=== PATIENT | male | born 1965 ===

== ENCOUNTER 2016-05-23 00:48 | Observation (INO) | payer MEDICAID ==
[2016-05-23] MEDS ORDERED: Sodium Chloride 0.9% 1,000 ML IV STA ×2 (01:24→02:17)
[2016-05-23 01:41] LABS: BASO % 0.7 % (0.0-2.0); EOS % 0.5 % (0.0-4.0); HEMATOCRIT 40.2 % (35.0-51.0); LYMPH # 2.3 K/uL (1.0-4.3); LYMPH % 38.9 % (20.0-40.0); MEAN CELL VOLUME 84.9 fl (80.0-94.0); MEAN CORPUSCULAR HEMOGLOBIN 27.1 pg (27.0-31.0); MEAN CORPUSCULAR HGB CONC 31.9 g/dL (33.0-37.0); MEAN PLATELET VOLUME 9.1 fl (7.2-11.7); MONO # 0.3 K/uL (0.0-0.8); MONO % 5.3 % (0.0-10.0); NEUT # 3.3 K/uL (1.8-7.0); NEUT % 54.6 % (50.0-75.0); RED CELL DISTRIBUTION WIDTH 13.7 % (11.5-14.5)
[2016-05-23 01:49] LABS: ALB/GLOB RATIO 1.2 (1.0-2.1); ALKALINE PHOSPHATASE 152 U/L (38-126); ALT/SGPT 71 U/L (21-72); AST/SGOT 88 U/L (17-59); BILIRUBIN,TOTAL 0.5 mg/dl (0.2-1.3); BLOOD UREA NITROGEN 8 mg/dl (9-20); CALCIUM 9.4 mg/dL (8.4-10.2); CARBON DIOXIDE 21 mmol/L (22-30); CHLORIDE 105 mmol/L (98-107); GFR AFRICAN-AMERICAN > 60; POTASSIUM 3.9 MMOL/L (3.6-5.0); SODIUM 149 mmol/l (132-148); TOTAL PROTEIN 7.8 G/DL (6.3-8.2)
[2016-05-23 01:52] LABS: GLUCOSE,RANDOM 489 mg/dL (75-110)
--- NOTE | 2016-05-23 01:58 | ED PDOC ---
HPI: Psych/Substance Abuse Time Seen by Provider: 05/23/16 00:56 Chief Complaint (Nursing): Alcohol Ingestion Chief Complaint (Provider): Alcohol Intoxication ED Caveat: Intoxicated History Per: Patient History/Exam Limitations: intoxication Onset/Duration Of Symptoms: Hrs Current Symptoms Are (Timing): Still Present Suicide/Self Injury Attempted (Context): None Ingestion Of Substance: ETOH Modifying Factor(s): Alcohol Severity: Moderate Additional Complaint(s): Chris Aiken is a 50 year old male, with no pertinent past medical history, who presents to the emergency department due to alcohol intoxication. Patient was reportedly kicked out of a bar due to intoxication and aggressiveness, and is currently incoherent. HPI/ROS limited due to intoxication. PMD: none specified Past Medical History Reviewed: Historical Data, Nursing Documentation, Vital Signs Vital Signs: Last Vital Signs Temp 98.7 F 05/23/16 00:54 Pulse 104 H 05/23/16 00:54 Resp 17 05/23/16 00:54 BP 138/88 05/23/16 00:54 Pulse Ox 98 05/23/16 00:54 - Medical History PMH: No Chronic Diseases - Surgical History Surgical History: No Surg Hx - Family History Family History: States: Unknown Family Hx - Social History Current smoker - smoking cessation education provided: No Alcohol: Occasional Drugs: Denies - Allergies Allergies/Adverse Reactions: Allergies Allergy/AdvReac Type Severity Reaction Status Date / Time No Known Allergies Allergy Verified 05/23/16 00:59 Review of Systems Review Of Systems: ROS cannot be obtained secondary to pt's inabilty to answer questions. (alcohol intoxication) Neurological: Positive for: Change in Speech (incoherent), Other (intoxicated) Physical Exam - Reviewed Nursing Documentation Reviewed: Yes Vital Signs Reviewed: Yes - Physical Exam Appears: Positive for: Non-toxic, No Acute Distress Head Exam: Positive for: ATRAUMATIC Skin: Positive for: Normal Color, Dry Neck: Positive for: Normal, Painless ROM Cardiovascular/Chest: Positive for: Regular Rate, Rhythm. Negative for: Murmur Respiratory: Positive for: Normal Breath Sounds. Negative for: Respiratory Distress Gastrointestinal/Abdominal: Positive for: Soft Extremity: Positive for: Normal ROM Neurologic/Psych: Positive for: Alert. Negative for: Oriented - Laboratory Results Result Diagrams: 05/23/16 01:30 05/23/16 01:30 - ECG O2 Sat by Pulse Oximetry: 98 (RA) Pulse Ox Interpretation: Normal Medical Decision Making Medical Decision Makin:56 Initial Impression: Alcohol intoxication Initial Plan: * Alcohol Serum * CBC * CMP * Urinalysis * Urine Culture * Sodium Chloride 0.9% 1,000 ml IV 999 mls/hr * Reevaluation pt reevaluated after iv fluids and isnulin (for hyperglycemie,normal AG) pt feels better instructed to follow up outpt fp for hyperglycemia alcohol intox as well Scribe Attestation: Documented by Ben Moran, acting as a scribe for Fam Mcdaniel MD. Provider Scribe Attestation: All medical record entries made by the Scribe were at my direction and personally dictated by me. I have reviewed the chart and agree that the record accurately reflects my personal performance of the history, physical exam, medical decision making, and the department course for this patient. I have also personally directed, reviewed, and agree with the discharge instructions and disposition. Disposition - Clinical Impression Clinical Impression: Alcohol use, Hyperglycemia - Patient ED Disposition Is Patient to be Admitted: Yes Counseled Patient/Family Regarding: Studies Performed, Diagnosis, Need For Followup - Disposition Disposition: Routine/Home Disposition Time: 05:42 Condition: GOOD
[2016-05-23 03:19] LABS: RBC URINE 2 /hpf (0-3); URINE BILIRUBIN NEGATIVE (NEGATIVE); URINE BLOOD NEGATIVE (NEGATIVE); URINE COLOR STRAW (YELLOW); URINE GLUCOSE (UA) >=500 mg/dL (Normal); URINE KETONE NEGATIVE (NEGATIVE); URINE LEUKOCYTE ESTERASE NEG Leu/uL (Negative); URINE PROTEIN NEGATIVE (NEGATIVE); URINE UROBILINOGEN 0.2-1.0 mg/dL (0.2-1.0); WBC URINE < 1 /hpf (0-5)
[2016-05-23 05:56] VITALS: BP 131/78; PULSE 83; RESP 19; TEMP 98.3; O2SAT 100
== END 2016-05-23 05:55 | disposition home or self-care (01) ==
LOC: H.ER 00:48 → H.EROBSV 01:57 → EDBD 01:57
PROVIDERS: ADMIT Emergency Medicine; ATTEND Emergency Medicine
DX: F10.129 Alcohol abuse with intoxication, unspecified (principal); R73.9 Hyperglycemia, unspecified; Y90.8 Blood alcohol level of 240 mg/100 ml or more